=== PATIENT | female | born 1940 | race Caucasian/White ===

== ENCOUNTER 2019-11-21 15:38 | Inpatient (IN) ==
[2019-11-21] MEDS ORDERED: MORPHINE 4 MG/1 ML VIAL ONE (16:00)
[2019-11-21] MEDS ORDERED: MORPHINE 4 MG/1 ML VIAL IV STA (16:13)
[2019-11-21] MEDS ORDERED: ONDANSETRON 4 MG/2 ML VIAL IV PRN (16:42)
[2019-11-21] MEDS ORDERED: MAGNESIUM HYDROXIDE SUSP 30 ML UDCUP PO PRN (16:42)
[2019-11-21] MEDS ORDERED: MORPHINE 4 MG/1 ML VIAL IV PRN (16:44)
[2019-11-21 17:10] LABS: Basophils % 0.3 % (0.0-0.8); Eosinophils % 0.3 % (0.00-10.9); Hematocrit 41.8 VOL% (35.7-47.0); Hemoglobin 13.3 GM/DL (12.0-16.0); Immature Granulocytes % 0.4 %; Immature Granulocytes Absolute 0.04 #; Lymphocytes # 1.1 10*3/uL (1.4-4.0); Lymphocytes % 12.3 % (21.3-54.2); Mean Corpuscular HGB Conc 31.8 GM/DL (32-36); Mean Corpuscular Volume 99.1 FL (87-102); Mean Platelet Volume 9.5 FL (9.6-12.0); Monocytes % 3.7 % (1.7-12.7); Platelet Count 183 T/CUMM (130-400); Red Blood Count 4.22 MC/CUMM (3.8-5.5); Red Cell Distribution Width 12.7 % (9.3-17.3); White Blood Count 8.9 T/CUMM (4-12)
[2019-11-21 17:29] LABS: Calcium 8.7 MG/DL (8.5-10.1); Osmolality,Calculated 281.4 MOS/KG (273-304)
[2019-11-21] MEDS: DEXTROSE 5% NACL 0.45% 1,000 ML IV SCH (18:29)
[2019-11-22] MEDS ORDERED: ceFAZolin 1,000 MG in SYRINGE 1 EACH IV ONE (07:04)
[2019-11-22] MEDS ORDERED: LACTATED RINGERS 1,000 ML IV SCH (08:30)
[2019-11-22] MEDS: DEXTROSE 5% NACL 0.45% 1,000 ML IV SCH ×3 (08:36→23:22)
[2019-11-22] MEDS: GABAPENTIN 300 MG CAPSULE PO SCH ×3 (08:36→16:32)
[2019-11-22] MEDS ORDERED: LACTULOSE 20 GM/30 ML UDCUP PO PRN (10:20)
[2019-11-22] MEDS ORDERED: ACETAMINOPHEN 325 MG TABLET PO PRN (10:20)
[2019-11-22] MEDS ORDERED: BISACODYL 10 MG SUPP RECTAL PRN (10:20)
[2019-11-22] MEDS ORDERED: diphenhydrAMINE CAP 25 MG CAPSULE PO PRN (10:20)
[2019-11-22] MEDS ORDERED: MAGNESIUM HYDROXIDE SUSP 30 ML UDCUP PO PRN (10:20)
[2019-11-22] MEDS ORDERED: PROMETHAZINE 25 MG/1 ML VIAL IM PRN (10:20)
[2019-11-22] MEDS ORDERED: IBUPROFEN 200 MG TABLET PO PRN (10:23)
[2019-11-22] MEDS ORDERED: MORPHINE 4 MG/1 ML VIAL IV PRN ×2 (10:24→10:27)
[2019-11-22] MEDS ORDERED: LIDOCAINE 2% 5 ML VIAL ONE (10:37)
[2019-11-22] MEDS ORDERED: ePHEDrine 50 MG/ML AMP ONE (10:37)
[2019-11-22] MEDS ORDERED: SEVOFLURANE 1 UNIT/15 MINUTE INH ONE (10:37)
[2019-11-22] MEDS ORDERED: fentaNYL 100 MCG/2 ML VIAL ONE (10:37)
[2019-11-22] MEDS ORDERED: propofoL 200 MG/20 ML VIAL IV ONE (10:37)
[2019-11-22] MEDS ORDERED: GLYCOPYRROLATE 0.4 MG/2 ML VIAL ONE (10:38)
[2019-11-22] MEDS ORDERED: ONDANSETRON 4 MG/2 ML VIAL ONE ×2 (10:38→11:19)
[2019-11-22] MEDS ORDERED: ACETAMINOPHEN 1,000 MG/100 ML VIAL IV ONE (10:38)
[2019-11-22] MEDS ORDERED: PHENYLEPHRINE 1 MG/10 ML SYRINGE IV ONE (10:39)
[2019-11-22] MEDS ORDERED: ROCURONIUM 100 MG/10 ML VIAL IV ONE (10:39)
[2019-11-22] MEDS ORDERED: NEOSTIGMINE 10 MG/10 ML VIAL ONE (10:39)
[2019-11-22] MEDS ORDERED: ONDANSETRON 4 MG/2 ML VIAL IV PRN (10:41)
[2019-11-22] MEDS ORDERED: HYDROmorphone 2 MG/1 ML VIAL ONE (11:19)
[2019-11-22] MEDS: HYDROmorphone 2 MG/1 ML VIAL IV PRN ×4 (11:23→11:47)
[2019-11-22] MEDS: ceFAZolin 1,000 MG in SYRINGE 1 EACH IV SCH ×2 (16:18→21:27)
[2019-11-23] MEDS: ceFAZolin 1,000 MG in SYRINGE 1 EACH IV SCH (06:31)
[2019-11-23] MEDS: GABAPENTIN 300 MG CAPSULE PO SCH ×3 (08:23→17:21)
[2019-11-23] MEDS: DEXTROSE 5% NACL 0.45% 1,000 ML IV SCH ×2 (08:24→19:31)
[2019-11-23] MEDS ORDERED: POLYETHYLENE GLYCOL 3350/ELECTROLYTES 4,000 ML BOTTLE PO ONE (13:11)
[2019-11-24 05:34] LABS: Basophils % 0.4 % (0.0-0.8); Eosinophils # 0.1 10*3/uL (0.0-0.87); Eosinophils % 0.6 % (0.00-10.9); Hematocrit 32.1 VOL% (35.7-47.0); Hemoglobin 10.4 GM/DL (12.0-16.0); Immature Granulocytes % 0.2 %; Immature Granulocytes Absolute 0.02 #; Lymphocytes # 1.4 10*3/uL (1.4-4.0); Lymphocytes % 16.6 % (21.3-54.2); Mean Corpuscular HGB Conc 32.4 GM/DL (32-36); Mean Corpuscular Volume 98.8 FL (87-102); Mean Platelet Volume 10.3 FL (9.6-12.0); Monocytes % 8.2 % (1.7-12.7); Platelet Count 136 T/CUMM (130-400); Red Blood Count 3.25 MC/CUMM (3.8-5.5); Red Cell Distribution Width 12.8 % (9.3-17.3); White Blood Count 8.4 T/CUMM (4-12)
[2019-11-24 05:54] LABS: Calcium 8.2 MG/DL (8.5-10.1); Osmolality,Calculated 277.4 MOS/KG (273-304)
[2019-11-24] MEDS: DEXTROSE 5% NACL 0.45% 1,000 ML IV SCH (06:08)
[2019-11-24 07:55] VITALS: BP 147/62
[2019-11-24] MEDS: GABAPENTIN 300 MG CAPSULE PO SCH (08:03)
== END 2019-11-24 11:21 | disposition home or self-care (01) | DRG 494 ==
LOC: EDBD → EDUNIT# → N.ED 15:38 → N.EDINP 16:41 → N.3E 17:49
PROVIDERS: ADMIT Orthopaedic Surgery; ATTEND Orthopaedic Surgery